=== PATIENT | female | born 1970 | race Two or more races ===

== ENCOUNTER 2021-12-05 17:14 | Emergency (ER) | payer BC, OTHER ==
[~2021-12-05] VITALS: Ht 170.2 cm; Wt 81.8 kg
[2021-12-05 17:30] VITALS: BP 138/108
[2021-12-05] MEDS ORDERED: HYDROcodone-ACET 10/325MG TAB PO ONE (20:00)
[2021-12-05] MEDS ORDERED: TRAM-297 PO (22:51)
== END 2021-12-06 00:09 | disposition home or self-care (01) ==
LOC: EDSEX 17:14 → EDBD 17:14 → ER 17:16
DX: S96.911A Strain of unspecified muscle and tendon at ankle and foot level, right foot, initial encounter (principal); S60.211A Contusion of right wrist, initial encounter; E78.5 Hyperlipidemia, unspecified; I10 Essential (primary) hypertension; Z90.89 Acquired absence of other organs; W19.XXXA Unspecified fall, initial encounter; Y93.89 Activity, other specified; Y92.89 Other specified places as the place of occurrence of the external cause; Y99.8 Other external cause status
CPT/HCPCS: 29515; 73090; 73562; 73610